=== PATIENT | female | born 1965 | race Caucasian/White ===

== ENCOUNTER 2017-12-17 16:00 | Emergency (ER) | payer OTHER ==
[~2017-12-17] VITALS: Ht 162.6 cm; Wt 71.0 kg
[~2017-12-17 16:00] MED LIST: BUSP10TA PO; CITA40 PO; MEDR4PAK3 PO; REME30TA PO; ZITH250T PO
[2017-12-17 16:03] VITALS: BP 133/84; PULSE 96; RESP 16; TEMP 98.6; O2SAT 96
[2017-12-17] MEDS ORDERED: SERO100T PO (16:15)
[2017-12-17] MEDS ORDERED: [UNRECOGNIZED DRUG - REMARK] (16:15)
[2017-12-17] MEDS ORDERED: TRAM50TA PO (16:15)
[2017-12-17] MEDS ORDERED: DULO1CAP PO (16:15)
--- NOTE | 2017-12-17 16:25 | PD ---
HPI Chief Complaint: Allergic/Adverse Reaction Time Seen by Provider: 16:13 Travel History International Travel<30 days: No Contact w/Intl Traveler<30days: No Traveled to known affect area: No History of Present Illness HPI 52-year-old female complains of throat swelling and itching rash. Patient states that the symptoms started last night. Patient states that she was seen at [facility] in [facility] and given prescription for steroid earlier today. Patient has not filled the prescription for steroids. Patient states that she started having sensation of throat swelling of this afternoon. Patient has not taken any Benadryl since the rash started. Patient denies any new exposure. Patient denies any chest pain or shortness of breath. PFSH Past Medical History Anxiety: Yes Depression: Yes Cancer: No (Patient Denies) Cardiovascular Problems: No (Patient Denies) COPD: Yes Diabetes: No (Patient Denies) Diminished Hearing: No Endocrine: No Genitourinary: No Headaches: Yes (Patient states headaches are a side effect of Chantix) Musculoskeletal: No Neurologic: No Psychiatric: Yes (History of depression. First diagnosis 10 years ago as per patient) Reproductive: No Respiratory: No Seizures: No (Patient Denies) Influenza Vaccination: Yes ?: Not Menopausal: Yes : 3 Para: 2 Miscarriage: 1 Tubal Ligation: Yes Past Surgical History AICD: No Body Medical Devices: BREAST Section: Yes Gynecologic Surgery: Yes (TUBAL LIGATION, C SECTION) Hysterectomy: Yes Joint Replacement: No Pacemaker: No Other Surgery: Yes Social History Alcohol Use: Yes Tobacco Use: Yes (2 PACKS PER DAY) Substance Use: No Allergies-Medications (Allergen,Severity, Reaction): Coded Allergies: No Known Allergies (Verified Adverse Reaction, Unknown, 12/17/17) Reported Meds & Prescriptions Reported Meds & Active Scripts Active Reported [anxiety med?] [address] (Duloxetine HCl) 20 Mg Capdr 0 PO DAILY Seroquel (Quetiapine Fumarate) 100 Mg Tab 100 Mg PO HS Tramadol (Tramadol HCl) 50 Mg Tab 50 Mg PO Q8H PRN Review of Systems General / Constitutional: No: Fever Eyes: No: Visual changes HENT: No: Headaches Cardiovascular: No: Chest Pain or Discomfort Respiratory: No: Shortness of Breath Gastrointestinal: No: Abdominal Pain Genitourinary: No: Dysuria Musculoskeletal: No: Pain Skin: Positive Rash, Positive Itching Neurologic: No: Weakness Psychiatric: No: Depression Endocrine: No: Polydipsia Hematologic/Lymphatic: No: Easy Bruising Physical Exam Narrative GENERAL: Well-nourished, well-developed patient. SKIN: Focused skin assessment warm/dry. HEAD: Normocephalic. EYES: No scleral icterus. No injection or drainage. Throat: No edema noted. NECK: Supple, trachea midline. No JVD or lymphadenopathy. CARDIOVASCULAR: Regular rate and rhythm without murmurs, gallops, or rubs. RESPIRATORY: Breath sounds equal bilaterally. No accessory muscle use. No stridor or wheezes. GASTROINTESTINAL: Abdomen soft, non-tender, nondistended. MUSCULOSKELETAL: No cyanosis, or edema. BACK: Nontender without obvious deformity. No CVA tenderness. Patient had diffuse papular rash over trunk and extremity. Data Data Last Documented VS Vital Signs Date Time Temp Pulse Resp B/P (MAP) Pulse Ox O2 Delivery O2 Flow Rate FiO2 12/17/17 16:03 98.6 96 16 133/84 (100) 96 Orders Orders Dexamethasone Inj (Decadron Inj) (12/17/17 16:30) Diphenhydramine (Benadryl) (12/17/17 16:30) MDM Medical Decision Making Medical Screen Exam Complete: Yes Emergency Medical Condition: Yes Differential Diagnosis Differential diagnosis including contact dermatitis, allergic reaction. Narrative Course 52-year-old male with itching rash over the trunk and extremity. Decadron 8 mg IM. Benadryl 25 mg by mouth given. Diagnosis Primary Impression: Allergic dermatitis Patient Instructions: General Instructions Additional Instructions: Take the prednisone as directed. Benadryl as directed. Follow-up with personal physician. Return if worse. Med/Other Pt SpecificInfo: Prescription(s) given Disposition: DISCHARGE HOME Condition: Stable Cristi Loco MD Dec 17, 2017 16:25
[2017-12-17] MEDS ORDERED: diphenhydrAMINE HCL 25 MG CAP PO ONE (16:30)
[2017-12-17] MEDS ORDERED: DEXAMETHASONE SOD PHOS 4 MG/ML VIAL IM ONE (16:30)
== END 2017-12-17 16:33 | disposition home or self-care (01) ==
LOC: PHED 16:00
DX: L23.9 Allergic contact dermatitis, unspecified cause (principal); F32.9 Major depressive disorder, single episode, unspecified; J44.9 Chronic obstructive pulmonary disease, unspecified; F17.210 Nicotine dependence, cigarettes, uncomplicated
CPT/HCPCS: 96372; 99283; J1100